=== PATIENT | female | born 1970 | race Caucasian/White ===

== ENCOUNTER 2020-04-06 13:09 | Outpatient (CLI) | payer OTHER, SELFPAY ==
[2020-04-10 11:52] LABS: Reference Lab Test Result Negative
== END 2020-04-06 13:10 | disposition home or self-care (01) ==
LOC: ANHLAB 13:16
PROVIDERS: PCP Family Medicine; Visit Provider Family Medicine
DX: R06.02 Shortness of breath (principal); R43.0 Anosmia; J06.9 Acute upper respiratory infection, unspecified
CPT/HCPCS: 36415; 86769

== ENCOUNTER 2020-04-25 08:33 | Outpatient (CLI) | payer OTHER, SELFPAY ==
[2020-04-26 03:00] LABS: SARS-CoV-2 RNA PCR Positive
== END 2020-04-25 08:34 | disposition home or self-care (01) ==
LOC: CHSLAB 08:35
PROVIDERS: PCP Family Medicine; Visit Provider Family Medicine
DX: U07.1 COVID-19 (principal)
CPT/HCPCS: 87635; C9803; U0003

== ENCOUNTER 2020-04-28 16:30 | Emergency (ER) | payer OTHER, SELFPAY ==
[2020-04-28] VITALS (11 sets, daily range): BP systolic 135–177; BP diastolic 78–88; PULSE 51–61; RESP 7–23; TEMP 36.5–36.9; O2SAT 97–99
--- NOTE | ~2020-04-28 | XR_ITS ---
EXAMINATION: XR chest 1V portable DATE: 04/28/2020 18:22 INDICATION: Shortness of breath. TECHNIQUE: A single frontal view of the chest was obtained. COMPARISON: Chest 2 views 06/25/17 FINDINGS: A calcified left lung nodule is consistent with old granulomatous disease. No pleural effus ion or pneumothorax. The heart size is normal. IMPRESSION: 1. No acute cardiopulmonary disease. Reviewed, dictated and finalized at location A. CE CLERK ROUTINE
--- NOTE | 2020-04-28 17:40 | PC.NURSE ---
patient brought back to ED room 12 with c/o headache for the past several days. states she was tested for Covid recently and is (+). see triage notes. no change in condition. resting on stretcher. has mask over eyes due to photophobia. denies known fever. denies cough. denies N/V/D. alert. oriented. assessments documented. SL attempted x 2 without success. SL now in right arm. labs drawn. placed on product scientist.
--- NOTE | 2020-04-28 18:05 | ECG_ITS ---
Measurements Intervals [place] Rate: 53 P: 42 GA: 182 QRS: -2 QRSD: 101 T: 34 QT: 442 QTc: 417 Interpretive Statements SINUS BRADYCARDIA BASELINE WANDER- V3, V5 BORDERLINE ECG Electronically Signed On 04-29-2020 7:52:20 FACILITIES OPERATOR by Marek Camara D.O.
--- NOTE | 2020-04-28 18:07 | ED.SOB ---
HPI - SOB/Dyspnea General Chief Complaint: Shortness of Breath/Dyspnea Stated Complaint: COID +, high bp, SOB, Time Seen by Provider: 04/28/20 17:29 Source: patient Mode of arrival: ambulatory Limitations: no limitations History of Present Illness HPI Narrative: This is a 50 year old female that presents to the ER for cold symptoms x 1 week. Reports she tested positive for COVID 2 days ago. Reports headaches, congestion, cough, and shortness of breath with exertion. Reports she has been having trouble getting her blood pressure under control. Reports history of migraines and that she has been taking Excedrin with little relief. Denies fever or chest pain. Related Data Home Medications Medication Instructions Recorded Confirmed aspirin 81 mg tablet,delayed 81 mg PO DAILY 07/29/19 07/29/19 release calcium carbonate 600 mg (1,500 4 cap PO cap 07/29/19 07/29/19 mg)-vitamin D3 500 unit capsule fluticasone propionate 50 1 spray NASAL DAILY 07/29/19 07/29/19 mcg/actuation nasal spray,suspension montelukast 10 mg tablet 10 mg PO QPM tablet 07/29/19 07/29/19 multivitamin 1 cap PO DAILY 07/29/19 07/29/19 triamcinolone acetonide 55 mcg 2 spray NASAL DAILY 07/29/19 07/29/19 nasal spray aerosol Allergies Allergy/AdvReac Type Severity Reaction Status Date / Time moxifloxacin [Avelox] Allergy Intermediate anaphylaxis Verified 04/25/20 08:01 haloperidol [From Haldol] Allergy Hypertensio Verified 04/28/20 17:19 n MOXIFLOXACIN HCL Allergy Mild RASH Uncoded 04/28/20 17:19 Review of Systems Review of Systems: Narrative: CONSTITUTIONAL: Denies fever EYES: Reports blurry vision ENT: Reports rhinorrhea, congestion, sore throat CARDIOVASCULAR: Denies chest pain, or edema. RESPIRATORY: Reports cough and dyspnea. NEUROLOGIC: Reports headache. Denies numbness, or weakness. All systems reviewed & are unremarkable except as noted in HPI and below PMFSH Past Medical History Medical History (Updated 04/28/20 @ 20:06 by Isabel Warren PA-C) ADHD ADHD Anemia Anxiety Arthritis Chronic back pain HTN (hypertension) Hyperlipidemia Hypothyroid Migraine Mitral valve prolapse Seasonal allergies Shingles UTI (urinary tract infection) Surgical History Surgical History History of cholecystectomy History of tonsillectomy History of tubal ligation Family History Family History Mother Hypertension Family history of diabetes mellitus in first degree relative Family history of congestive heart failure Father Cerebrovascular accident Family history of congestive heart failure Other Asthma Depression Diabetes mellitus Family history of anemia Family history of arthritis Family history of atrial fibrillation Family history of blood dyscrasia Family history of cardiovascular disease Family history of coronary artery disease Family history of elevated blood lipids Family history of malignant neoplasm Family history of migraine headaches Family history of obesity Family history of thyroid disease Social History Social History Smoking status: Never smoker Alcohol intake: never Gender identity (if verbalized by the patient): Female Exam Narrative: Exam Narrative: GENERAL: Well-appearing, obese, and in no acute distress. HEAD: Normocephalic, atraumatic. EYES: PERRLA and EOMI. ENT: Nares clear, no rhinorrhea or epistaxis. Mucous membranes moist. Oropharynx without tonsillar hypertrophy exudate or other lesions. Bilateral TMs pearly lindsey non-bulging NECK: Supple. No adenopathy or masses. CHEST: Clear to auscultation. No respiratory distress. No wheezes rales or rhonchi HEART: Regular rate and rhythm. No murmur heard. Normal peripheral pulses. EXTREMITIES: Normal range of motion. No edema. SKIN: Warm, dry, no rash. NEURO: No fo
[2020-04-28] MEDS: SODIUM CHLORIDE 0.9% IV 1,000 ML 999 ML IV CONT (18:15)
[2020-04-28] MEDS: diphenhydrAMINE HCl INJ 50 MG/ML VIAL 25 MG IV PUSH (18:16)
[2020-04-28] MEDS: KETOROLAC 30 MG/ML VIAL (*BKC) IV PUSH (18:17)
[2020-04-28] MEDS: METOCLOPRAMIDE HCL INJ 10 MG/2 ML VIAL IV PUSH (18:17)
--- NOTE | 2020-04-28 18:20 | PC.NURSE ---
EKG done at bedside. patient medicated as ordered. on radiation monitor. alert. oriented. denies needs. lights turned off. has call light in reach.
[2020-04-28 18:30] LABS: Basophils Percent Auto 0.3 % (0.2-1.2); Eosinophils Percent Auto 0.5 % (0-4.4); Hematocrit 39.4 % (37.0-47.0); Hemoglobin 13.1 g/dL (12.0-15.0); Immature Granulocyte Absolute 0.06 K/mm3 (0.00-0.031); Lymphocytes Absolute Auto 1.86 K/mm3 (0.9-3.2); Lymphocytes Percent Auto 30.7 % (18.3-44.2); Mean Corpuscular HGB Conc 33.2 g/dl (32-36); Mean Corpuscular Hemoglobin 30.3 pg (26-34); Mean Platelet Volume 8.9 fl (7.4-10.4); Monocytes Absolute Auto 0.3 K/mm3 (0.1-0.6); Monocytes Percent Auto 4.8 % (2.6-8.5); Neutrophils Absolute Auto 3.8 K/mm3 (1.3-6.7); Neutrophils Percent Auto 62.7 % (45.5-73.1); Platelet Count Result 259 k/mm3 (150-375); Red Blood Count 4.33 M/mm3 (4.2-5.4); Red Cell Distribution Width 13.3 % (11.5-14.5); White Blood Count 6.1 K/mm3 (4.5-10.0)
[2020-04-28 18:41] LABS: Alanine Aminotransferase 20 U/L (4-35); Albumin Level 3.8 g/dL (3.5-5.1); Alkaline Phosphatase 79 U/L (38-126); Anion Gap 12 mmol/L (8-16); Aspartate Amino Transferase 20 U/L (14-36); Bilirubin,Total 0.2 mg/dL (0.2-1.3); Blood Urea Nitrogen 23 mg/dL (7-17); Calcium 8.5 mg/dL (8.4-10.2); Carbon Dioxide 25 mmol/L (22-30); Chloride 104 mmol/L (98-107); Estimated CRCL calculation 68 ml/min; Estimated Glomerular Filt Rate 52; Glucose 82 mg/dL (65-105); Lactate Dehydrogenase 346 U/L (313-618); Potassium 3.4 mmol/L (3.4-5.0); Sodium 141 mmol/L (137-145)
[2020-04-28 18:42] LABS: Lactic Acid Reflex 1.2 mmol/L (0.7-2.1)
[2020-04-28 18:50] LABS: NT Pro B Type Natriuretic Pept 80 PG/ML (5-100)
--- NOTE | 2020-04-28 19:03 | PC.NURSE ---
resting on stretcher. PURDY is better. does have mild bodyaches. waiting for all labs to be resulted. denies needs. has call light in reach. update given to patient's daughter.
[2020-04-28 19:26] LABS: Prothrombin Time 13.6 Seconds (11.1-14.7)
[2020-04-28 19:27] LABS: Partial Thromboplastin Time 25.5 SECONDS (22.3-36.8)
[2020-04-28 19:35] LABS: D Dimer 0.27 ug/mL (<0.48)
== END 2020-04-28 20:43 | disposition home or self-care (01) ==
PROVIDERS: Physician Assistant; Emergency Provider Emergency Medicine; PCP Family Medicine
DX: U07.1 COVID-19 (principal); G43.909 Migraine, unspecified, not intractable, without status migrainosus; M19.90 Unspecified osteoarthritis, unspecified site; I10 Essential (primary) hypertension; E78.5 Hyperlipidemia, unspecified; E03.9 Hypothyroidism, unspecified; I34.1 Nonrheumatic mitral (valve) prolapse; Z79.82 Long term (current) use of aspirin; Z86.2 Personal history of diseases of the blood and blood-forming organs and certain disorders involving the immune mechanism; Z87.440 Personal history of urinary (tract) infections; R00.1 Bradycardia, unspecified
CPT/HCPCS: 36415; 71045; 80053; 83605; 83615; 83880; 85025; 85380; 85610; 85730; 93005; 96365; 96375; 99284; J0131; J1200; J1885; J2765; J7030

== ENCOUNTER 2020-07-02 00:21 | Observation (INO) | payer OTHER, SELFPAY ==
[2020-07-02] VITALS (23 sets, daily range): BP systolic 121–177; BP diastolic 51–98; PULSE 56–82; RESP 11–24; TEMP 36.4–36.9; O2SAT 97–100; BMI 41.4
--- NOTE | ~2020-07-02 | CT_ITS ---
EXAMINATION: CT brain wo con INDICATION: Altered mental status COMPARISON: 06/23/2019 TECHNIQUE: Standard unenhanced head CT. The dose-length product (DLP) was 605.33 mGy-cm. The mA was a djusted according to patient size. Iterative reconstruction technique was employed. FINDINGS: There is no intracranial hemorrhage, acute infarction, or abnormal mass lesion. The ventric les are normal. There is no abnormal mass effect or midline shift. The lindsey-white matter differentiat ion is normal. The basal cisterns are patent. The orbits are normal. The paranasal sinuses, mastoids and calvarium are normal. IMPRESSION: 1. No acute intracranial abnormality. Reviewed, dictated and finalized at location A. ULATION SALES REPRESENTATIVE
--- NOTE | ~2020-07-02 | MR_ITS ---
EXAMINATION: MR brain/brain stem wo/w con EXAM DATE: 07/02/2020 14:23 INDICATION: Altered mental status. TECHNIQUE: Magnetic resonance imaging (MRI) of the brain/brain stem obtained without contrast. Sagit roselyn T1, axial diffusion, gradient echo (T2*), T1, T2, FLAIR sequences obtained. Patient was then inj ected with 20 cc intravenous Multihance contrast. Axial and coronal postcontrast T1 weighted sequence s obtained. Correlation is made to head CT earlier same date. FINDINGS: There are no areas of restricted diffusion to suggest acute infarction. There is no acute hemorrhage seen on the T2*, a hemosiderin sensitive sequence. No intraparenchymal brain mass. The ve ntricles are normal in size. There are no extra-axial collections. Flow voids are seen in the cereb ral arteries on the T2-weighted sequences consistent with their expected patency. The orbits are unr emarkable. Soft tissue is unremarkable. Bilateral mastoid effusions. IMPRESSION: 1. No acute intracranial findings. 2. Mastoid effusions. Reviewed, dictated and finalized at location B. CTOR COUNSELING BUREAU
--- NOTE | ~2020-07-02 | XR_ITS ---
EXAMINATION: XR chest 1V INDICATION: Altered mental status, shortness of breath TECHNIQUE: AP view of the chest is obtained. COMPARISON: 04/28/2020 FINDINGS: The lungs are free of acute opacities. There is no pleural effusion or pneumothorax. The ca rdiomediastinal silhouette is normal. The visualized bones and soft tissues are unremarkable. IMPRESSION: 1. No acute cardiopulmonary abnormality. Reviewed, dictated and finalized at location A. GED CARE PROVIDER
--- NOTE | 2020-07-02 00:37 | ED.GENADULT ---
HPI - General Adult General Chief complaint: Weakness Stated complaint: weak, confusion Time Seen by Provider: 07/02/20 00:23 Source: RN notes reviewed History of Present Illness HPI narrative: Patient presents to emergency department from work for confusion. Patient states that since awaking at 4:30 PM this afternoon she has had some progressive confusion that she explains as feeling like I am in a fog patient came for further eval emergency department states she does have some feelings of weakness with us that is general she denies any fevers or chills headache vision changes numbness or tingling in extremities unilateral weakness chest pain abdominal pain nausea vomiting or any other symptoms she does note some mild feeling of shortness of breath states she did drink 3 [employer] is this evening which is more than she normally drinks patient does report she had the second Covid vaccination yesterday. Patient states that she has severe reaction with the first Covid vaccine and had to miss several days of work with myalgias and headaches patient denies a current headache patient states she has had some myalgias throughout the day today Related Data Home Medications Medication Instructions Recorded Confirmed aspirin 81 mg tablet,delayed 81 mg PO DAILY 07/29/19 07/29/19 release calcium carbonate 600 mg (1,500 4 cap PO cap 07/29/19 07/29/19 mg)-vitamin D3 500 unit capsule fluticasone propionate 50 1 spray NASAL DAILY 07/29/19 07/29/19 mcg/actuation nasal spray,suspension montelukast 10 mg tablet 10 mg PO QPM tablet 07/29/19 07/29/19 multivitamin 1 cap PO DAILY 07/29/19 07/29/19 triamcinolone acetonide 55 mcg 2 spray NASAL DAILY 07/29/19 07/29/19 nasal spray aerosol Allergies Allergy/AdvReac Type Severity Reaction Status Date / Time moxifloxacin [Avelox] Allergy Intermediate anaphylaxis Verified 07/02/20 00:28 haloperidol [From Haldol] Allergy Hypertensio Verified 07/02/20 00:28 n MOXIFLOXACIN HCL Allergy Mild RASH Uncoded 04/28/20 17:19 Review of Systems Review of Systems: Narrative: Gen.: Denies fevers or chills reports myalgias Eyes: Denies eye pain or visual change ENT: Denies congestion Respiratory: Denies shortness of breath or cough CV: Denies chest pain or palpitations GI: Denies abdominal pain nausea, emesis or diarrhea denies burning, urgency, frequency or hematuria Musculoskeletal: Denies back pain or muscle pain Neuro: See HPI Skin: Denies rash Except as documented, all other systems reviewed and negative [facility] Past Medical History Medical History (Updated 07/02/20 @ 03:48 by Zen Johnson DO) ADHD ADHD Anemia Anxiety Arthritis Chronic back pain HTN (hypertension) Hyperlipidemia Hypothyroid Migraine Mitral valve prolapse Seasonal allergies Shingles UTI (urinary tract infection) Surgical History Surgical History History of cholecystectomy History of tonsillectomy History of tubal ligation Family History Family History Mother Hypertension Family history of diabetes mellitus in first degree relative Family history of congestive heart failure Father Cerebrovascular accident Family history of congestive heart failure Other Asthma Depression Diabetes mellitus Family history of anemia Family history of arthritis Family history of atrial fibrillation Family history of blood dyscrasia Family history of cardiovascular disease Family history of coronary artery disease Family history of elevated blood lipids Family history of malignant neoplasm Family history of migraine headaches Family history of obesity Family history of thyroid disease Social History Social History Smoking status: Never smoker Alcohol intake: never Gender identity (if verbalized by the patient): Female
[2020-07-02] MEDS: SODIUM CHLORIDE 0.9% IV 1,000 ML 999 ML IV CONT (01:02)
--- NOTE | 2020-07-02 01:12 | ECG_ITS ---
Measurements Intervals [place] Rate: 72 P: 44 MI: 180 QRS: 8 QRSD: 98 T: 30 QT: 390 QTc: 429 Interpretive Statements SINUS RHYTHM DELAYED PRECORDIAL R/S TRANSITION LOW QRS VOLTAGE IN PRECORDIAL LEADS BORDERLINE ST-T WAVE ABNORMALITY- ANT/HIGH LAT LEADS BORDERLINE ECG Electronically Signed On 07-02-2020 9:04:51 RESEARCH LABORATORY SPECIALIST by Marek Camara D.O.
[2020-07-02 01:34] LABS: Basophils Percent Auto 0.8 % (0.2-1.2); Eosinophils Absolute Auto 0.3 K/mm3 (0-0.3); Eosinophils Percent Auto 4.9 % (0-4.4); Hematocrit 38.1 % (37.0-47.0); Hemoglobin 12.5 g/dL (12.0-15.0); Immature Granulocyte Absolute 0.02 K/mm3 (0.00-0.031); Immature Granulocyte Percent A 0.4 % (0-0.5); Lymphocytes Absolute Auto 1.04 K/mm3 (0.9-3.2); Lymphocytes Percent Auto 20.2 % (18.3-44.2); Mean Corpuscular HGB Conc 32.8 g/dl (32-36); Mean Corpuscular Hemoglobin 30.2 pg (26-34); Mean Platelet Volume 9.6 fl (7.4-10.4); Monocytes Absolute Auto 0.2 K/mm3 (0.1-0.6); Monocytes Percent Auto 4.3 % (2.6-8.5); Neutrophils Absolute Auto 3.6 K/mm3 (1.3-6.7); Neutrophils Percent Auto 69.4 % (45.5-73.1); Platelet Count Result 222 k/mm3 (150-375); Red Blood Count 4.14 M/mm3 (4.2-5.4); Red Cell Distribution Width 13.3 % (11.5-14.5); White Blood Count 5.1 K/mm3 (4.5-10.0)
[2020-07-02 01:43] LABS: Amphetamine Screen Urine Negative (Negative); Barbiturate Screen Urine Negative (Negative); Benzodiazepines Screen Urine Negative (Negative); Cannabinoid Screen Urine Negative (Negative); Cocaine Screen Urine Negative (Negative); Methadone Screen Urine Negative (Negative); Opiate Screen Urine Negative (Negative); Phencyclidine Screen Urine Negative (Negative)
[2020-07-02 01:52] LABS: Add Urine Microscopic? NO; Appearance Urine Clear (Clear); Bacteria Urine Trace /hpf; Bilirubin Urine Negative (Negative); Blood Urine Negative (Negative); Color Urine Colorless (Yellow); Glucose Urine UA Negative (Negative); Ketones Urine Negative (Negative); Leukocyte Esterase Ur Negative LEU/UL (Negative); Nitrate Urine Negative (Negative); Protein Urine Negative (Negative); RBC Urine 0-2 /hpf (0-2); Specific Grav Ur 1.005 (1.001-1.035); Squamous Epithelial Cell Urine Rare /hpf (Few); Urobilinogen Urine Negative mg/dL (<2.0); WBC Urine 0-3 /hpf
[2020-07-02 01:59] LABS: Alanine Aminotransferase 15 U/L (4-35); Albumin Level 3.5 g/dL (3.5-5.1); Alkaline Phosphatase 66 U/L (38-126); Anion Gap 5 mmol/L (8-16); Aspartate Amino Transferase 22 U/L (14-36); Bilirubin,Total 0.3 mg/dL (0.2-1.3); Blood Urea Nitrogen 12 mg/dL (7-17); Calcium 8.3 mg/dL (8.4-10.2); Carbon Dioxide 24 mmol/L (22-30); Chloride 108 mmol/L (98-107); Estimated CRCL calculation 81 ml/min; Estimated Glomerular Filt Rate > 60; Ethanol < 10 mg/dL (<10); Glucose 110 mg/dL (65-105); Potassium 3.6 mmol/L (3.4-5.0); Sodium 137 mmol/L (137-145)
[2020-07-02 02:03] LABS: Prothrombin Time 13.9 Seconds (11.1-14.7)
[2020-07-02 02:04] LABS: Partial Thromboplastin Time 31.5 SECONDS (22.3-36.8)
[2020-07-02 02:10] LABS: Troponin I < 0.012 ng/mL (0.000-0.034)
[2020-07-02] MEDS: ASPIRIN 81 MG CHEWABLE TABLET PO (03:44)
[2020-07-02] MEDS: LEVOTHYROXINE SODIUM INJ 100 MCG/5 ML VIAL IV PUSH (03:47)
--- NOTE | 2020-07-02 08:28 | PC.NURSE ---
Patient transferred from room 300 to 221-1. report received, patient alert and oriented x3 without complaints. oriented to room, call segovia within reach.
--- NOTE | 2020-07-02 11:22 | PM.IMHP ---
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 Also had some headaches and body aches and fatigue at the time. Pt had been well recently had the second covid shot on Thursday. Pt is usually in good health. Pt has recovered from the covid infection in april. Today pt denies any weakness or numbess in her arms or legs no speech, swallow problems no vision or facial numbness or weakness, but pt appears tired, having some body aches and fatigue. She does not appear confused. She is orientedx3. Her vitals are stable, no fever, cough or sob. CT head is NL, Cxr is NL. Review of Systems Review of Systems: All systems reviewed & are unremarkable except as noted in HPI and below PMFSH Past Medical History Medical History (Updated 07/02/20 @ 11:35 by Maite Kwok MD) ADHD ADHD Anemia Anxiety Arthritis Chronic back pain HTN (hypertension) Hyperlipidemia Hypothyroid Migraine Mitral valve prolapse Seasonal allergies Shingles UTI (urinary tract infection) Surgical History Surgical History History of cholecystectomy History of tonsillectomy History of tubal ligation Family History Family History Mother Hypertension Family history of diabetes mellitus in first degree relative Family history of congestive heart failure Father Cerebrovascular accident Family history of congestive heart failure Other Asthma Depression Diabetes mellitus Family history of anemia Family history of arthritis Family history of atrial fibrillation Family history of blood dyscrasia Family history of cardiovascular disease Family history of coronary artery disease Family history of elevated blood lipids Family history of malignant neoplasm Family history of migraine headaches Family history of obesity Family history of thyroid disease Social History Social History Smoking status: Never smoker Alcohol intake: never Substance use: never Gender identity (if verbalized by the patient): Female Spiritual care concerns: No Meds Home Medications and Allergies Home Medications Medication Instructions Recorded Confirmed Type albuterol sulfate 90 mcg/actuation 1 inhalation INHALATION Q4H PRN 07/29/19 07/02/20 Rx aerosol inhaler #8.5 gm aspirin 81 mg tablet,delayed 81 mg PO DAILY 07/29/19 07/02/20 History release calcium carbonate 600 mg (1,500 4 cap PO DAILY cap 07/29/19 07/02/20 History mg)-vitamin D3 500 unit capsule fluticasone propionate 50 1 spray NASAL DAILY 07/29/19 07/02/20 History mcg/actuation nasal spray,suspension multivitamin 1 cap PO DAILY 07/29/19 07/02/20 History bupropion HCl 150 mg tablet,12 hr 150 mg PO DAILY #30 tablet 11/08/19 07/02/20 Rx sustained-release fexofenadine 180 mg tablet 180 mg PO DAILY #30 tablet 11/08/19 07/02/20 Rx topiramate 200 mg tablet 200 mg PO BID #30 tablet 11/08/19 07/02/20 Rx fluoxetine 20 mg capsule 20 mg PO DAILY #30 cap 02/14/20 07/02/20 Rx fluoxetine 40 mg capsule 40 mg PO DAILY #30 cap 02/14/20 07/02/20 Rx levothyroxine 200 mcg capsule 200 mcg PO DAILY #30 cap 02/14/20 07/02/20 Rx meclizine 25 mg tablet 25 mg PO TID PRN #90 tablet 05/03/20 07/02/20 Rx atorvastatin 40 mg tablet 40 mg PO DAILY #90 tablet 05/07/20 07/02/20 Rx losartan 25 mg tablet 25 mg PO DAILY #90 tablet 05/07/20 07/02/20 Rx triamterene 37.5 1 tablet PO DAILY #90 tablet 05/07/20 07/02/20 Rx mg-hydrochlorothiazide 25 mg tablet metoprolol tartrate 12.5 mg PO BID PRN 07/02/20 07/02/20 History Allergies Allergy/AdvReac Type Severity Reaction Status Date / Time moxifloxacin [Avelox] Allergy Severe anaphylaxis Verified
[2020-07-02] MEDS: TRIAMTERENE 37.5 MG/HCTZ 25 MG (MAXZIDE) TABLET 1 TAB PO (14:27)
[2020-07-02] MEDS: LOSARTAN POTASSIUM 25 MG TABLET PO (14:28)
[2020-07-02] MEDS: FLUoxetine HCL 20 MG CAPSULE 40 MG PO (14:28)
[2020-07-02] MEDS: FLUoxetine HCL 20 MG CAPSULE PO (14:28)
[2020-07-02] MEDS: ATORVASTATIN 40 MG TABLET PO (14:29)
[2020-07-02] MEDS: MULTIVITAMINS THERAPEUTIC TAB (*BKC) 1 TABLET PO (14:32)
[2020-07-02] MEDS: ACETAMINOPHEN 325 MG TABLET 650 MG PO ×2 (15:01→22:26)
[2020-07-02] MEDS: TOPIRAMATE 100 MG TABLET 200 MG PO (17:11)
[2020-07-03 05:07] VITALS: BP 130/74; PULSE 53; RESP 14; TEMP 36.8; O2SAT 97
[2020-07-03 05:23] LABS: Basophils Absolute Auto 0.1 K/mm3 (0.0-0.1); Basophils Percent Auto 0.9 % (0.2-1.2); Eosinophils Absolute Auto 0.7 K/mm3 (0-0.3); Eosinophils Percent Auto 13.3 % (0-4.4); Hematocrit 38.8 % (37.0-47.0); Hemoglobin 12.7 g/dL (12.0-15.0); Immature Granulocyte Absolute 0.02 K/mm3 (0.00-0.031); Immature Granulocyte Percent A 0.4 % (0-0.5); Lymphocytes Percent Auto 28.1 % (18.3-44.2); Mean Corpuscular HGB Conc 32.7 g/dl (32-36); Mean Corpuscular Hemoglobin 30.5 pg (26-34); Mean Platelet Volume 9.2 fl (7.4-10.4); Monocytes Absolute Auto 0.4 K/mm3 (0.1-0.6); Monocytes Percent Auto 7.1 % (2.6-8.5); Neutrophils Absolute Auto 2.7 K/mm3 (1.3-6.7); Neutrophils Percent Auto 50.2 % (45.5-73.1); Platelet Count Result 227 k/mm3 (150-375); Red Blood Count 4.17 M/mm3 (4.2-5.4); Red Cell Distribution Width 13.2 % (11.5-14.5); White Blood Count 5.3 K/mm3 (4.5-10.0)
[2020-07-03 05:27] LABS: Anion Gap 6 mmol/L (8-16); Blood Urea Nitrogen 15 mg/dL (7-17); Calcium 9.2 mg/dL (8.4-10.2); Carbon Dioxide 24 mmol/L (22-30); Chloride 105 mmol/L (98-107); Estimated CRCL calculation 73 ml/min; Estimated Glomerular Filt Rate 58; Glucose 135 mg/dL (65-105); Potassium 3.8 mmol/L (3.4-5.0); Sodium 135 mmol/L (137-145)
[2020-07-03] MEDS: LEVOTHYROXINE SODIUM 100 MCG TABLET 200 MCG PO (06:44)
[2020-07-03] MEDS: ATORVASTATIN 40 MG TABLET PO (08:29)
[2020-07-03] MEDS: buPROPion HCL XL (24 HR) 150 MG TABCR PO (08:30)
[2020-07-03] MEDS: FLUoxetine HCL 20 MG CAPSULE PO (08:31)
[2020-07-03] MEDS: FLUoxetine HCL 20 MG CAPSULE 40 MG PO (08:32)
[2020-07-03] MEDS: MULTIVITAMINS THERAPEUTIC TAB (*BKC) 1 TABLET PO (08:33)
[2020-07-03] MEDS: LOSARTAN POTASSIUM 25 MG TABLET PO (08:33)
[2020-07-03] MEDS: TRIAMTERENE 37.5 MG/HCTZ 25 MG (MAXZIDE) TABLET 1 TAB PO (08:34)
[2020-07-03] MEDS: TOPIRAMATE 100 MG TABLET 200 MG PO (08:34)
[2020-07-03] MEDS: FLUTICASONE PROPIONATE 0.05% NA SPR 16 GM BTL (*BKC) 1 SPRAY NASAL (08:35)
[2020-07-03] MEDS: ACETAMINOPHEN 325 MG TABLET 650 MG PO (08:45)
[2020-07-03] MEDS: ASPIRIN 81 MG ENTERIC TABLET PO (10:31)
[2020-07-03] MEDS: LORATADINE 10 MG TABLET PO (10:31)
--- NOTE | 2020-07-03 11:27 | WPDNEURCNPN ---
Assessment and Plan Assessment and plan (1) Acute alteration in mental status: Code(s): R41.82 - Altered mental status, unspecified Status: Resolved (2) COVID-19: Code(s): U07.1 - COVID-19 Status: Chronic Additional Plan fairly nonfocal and stable neurological examination with obvious history of 2nd does in addition to the history of the previously COVID infection as well is stable MRI has documented no space-occupying lesion and chest x-ray is negative as well, I have reviewed all the medication she been continued on those medication as such Consult date: 07/03/20 Time Seen: 11:00 HPI: Jennyfer Lozano is a 50 year old female admitted to the hospital with the complaints of headaches, body aches and fatigue she received the 2nd COVID shot on Thursday up until then she has been in good health though she recently had the COVID infection in April and recover from that very well to prior to his 2nd dose of the COVID Scharff she is had taken the Benadryl 50 mg along with the Tylenol neuro consultation was obtained because patient was reportedly confused raising the possibility of the encephalopathy the CT scan of the head was normal and so as the chest x-ray, lab has revealed normal CBC normal BMP normal drug screen and positive SARS-CoV-2 COVID Review of Systems Review of Systems: All systems reviewed & are unremarkable except as noted in HPI and below PMFSH Past Medical History Medical History ADHD ADHD Anemia Anxiety Arthritis Chronic back pain HTN (hypertension) Hyperlipidemia Hypothyroid Migraine Mitral valve prolapse Seasonal allergies Shingles UTI (urinary tract infection) Surgical History Surgical History History of cholecystectomy History of tonsillectomy History of tubal ligation Family History Family History Mother Hypertension Family history of diabetes mellitus in first degree relative Family history of congestive heart failure Father Cerebrovascular accident Family history of congestive heart failure Other Asthma Depression Diabetes mellitus Family history of anemia Family history of arthritis Family history of atrial fibrillation Family history of blood dyscrasia Family history of cardiovascular disease Family history of coronary artery disease Family history of elevated blood lipids Family history of malignant neoplasm Family history of migraine headaches Family history of obesity Family history of thyroid disease Social History Social History Smoking status: Never smoker Alcohol intake: never Substance use: never Gender identity (if verbalized by the patient): Female Spiritual care concerns: No Meds Home Medications and Allergies Home Medications Medication Instructions Recorded Confirmed Type albuterol sulfate 90 mcg/actuation 1 inhalation INHALATION Q4H PRN 07/29/19 07/02/20 Rx aerosol inhaler #8.5 gm aspirin 81 mg tablet,delayed 81 mg PO DAILY 07/29/19 07/02/20 History release calcium carbonate 600 mg (1,500 4 cap PO DAILY cap 07/29/19 07/02/20 History mg)-vitamin D3 500 unit capsule fluticasone propionate 50 1 spray NASAL DAILY 07/29/19 07/02/20 History mcg/actuation nasal spray,suspension multivitamin 1 cap PO DAILY 07/29/19 07/02/20 History bupropion HCl 150 mg tablet,12 hr 150 mg PO DAILY #30 tablet 11/08/19 07/02/20 Rx sustained-release fexofenadine 180 mg tablet 180 mg PO DAILY #30 tablet 11/08/19 07/02/20 Rx topiramate 200 mg tablet 200 mg PO BID #30 tablet 11/08/19 07/02/20 Rx fluoxetine 20 mg capsule 20 mg PO DAILY #30 cap 02/14/20 07/02/20 Rx fluoxetine 40 mg capsule 40 mg PO DAILY #30 cap 02/14/20 07/02/20 Rx levothyroxine 200 mcg capsule 200 mcg PO DAILY #30 cap 02/14/20 07/02/20 Rx meclizine 25
--- NOTE | 2020-07-03 13:31 | PM.DS ---
DS: Admitting Diagnosis Admitting Diagnosis Admitting Diagnosis: AMS DS: Discharge Diagnosis Discharge Diagnosis (1) Acute alteration in mental status: Code(s): R41.82 - Altered mental status, unspecified Status: Resolved Assessment and Plan: Likely secondary to second covid shot and some side effect. Thinking process transitionally effected. Pt advised to drink plenty of water and rest. Pt seen by neurologist. CT head is negative. Neurochecks completed in the hospital. Pt looks well ready for discharge. Denies any confusion numbness or weakness today. (2) COVID-19: Code(s): U07.1 - COVID-19 Status: Chronic Assessment and Plan: In the past (3) Anxiety: Code(s): F41.9 - Anxiety disorder, unspecified Status: Chronic Assessment and Plan: Continue home medications (4) Essential (primary) hypertension: Code(s): I10 - Essential (primary) hypertension Status: Chronic Assessment and Plan: Continue home medications (5) Hypothyroid: Code(s): E03.9 - Hypothyroidism, unspecified Status: Chronic Assessment and Plan: Continue home medications (6) Hyperlipidemia: Code(s): E78.5 - Hyperlipidemia, unspecified Status: Chronic Assessment and Plan: Continue home medications (7) ADHD: Code(s): F90.9 - Attention-deficit hyperactivity disorder, unspecified type Status: Chronic Assessment and Plan: Contuinue home medications (8) Arthritis: Code(s): M19.90 - Unspecified osteoarthritis, unspecified site Status: Chronic Assessment and Plan: Continue home medications DS: Summary Hospital Course Hospital Course: 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 Also had some headaches and body aches and fatigue at the time. Pt had been well recently had the second covid shot on Thursday. Pt is usually in good health. Pt has recovered from the covid infection in april. Pt feels much better today stable for discharge. CT head is NL, Cxr is NL. No confusion no numbness or weakness. Time Spent with Patient Time attestation: Total time spent providing and/or coordinating discharge services:32 minutes on day of discharge Exam Const: General: tired appearing and other (overweight ) HENMT: Head: normocephalic Eyes: General: appearance normal, both eyes and all related structures Pupils: Equal, round and reactive pupils present Neck: Neck: supple Chest: Chest palpation & inspection: normal inspection of the chest Resp: Effort & Inspection: normal respiratory effort Auscultation: clear to auscultation bilaterally Cardio: Jugular venous distension: no JVD Rhythm: regular rhythm Heart sounds: S1 normal heart sound present and S2 normal heart sound present GI: Inspection: normal to inspection Auscultation: normal bowel sounds : General: Yes no CVA tenderness Back/Spine/Pelvis: Back: no CVA tenderness Skin: General skin exam: normal color and dry skin Neuro: Cranial nerves: Yes CN's II-XII intact bilaterally and Yes Equal, round and reactive pupils present Cognition (Neuro): normal cognition Speech: normal speech Motor exam (neuro): 5/5 motor strength present throughout Extrem: General: normal to inspection Psych: Appearance: grossly normal Mental Status: mental status grossly normal DS: Data Data Completed and Pending Labs on day of discharge: Labs from last 24 hours 07/03/20 07/03/20 04:55 04:55 WBC 5.3 RBC 4.17 L Hgb 12.7 Hct 38.8 MCV 93.0 MCH 30.5 MCHC 32.7 RDW 13.2 Plt Count 227 MPV 9.2 Immature Gran % (Auto) 0.4 Neut % (Auto) 50.2 Lymph % (Auto) 28.1 [place] % (Auto) 7.1 Eos % (Auto) 13.3 H Baso % (Auto) 0.9 Lymph # (Auto) 1.50 [place] # (Auto) 0.4 Eos # (Auto) 0.7 H Baso # (Auto) 0.1 Abs Immat Gran (auto) 0
== END 2020-07-03 14:02 | disposition home or self-care (01) ==
LOC: ANHED 03:48 → ANHTRC 07-03 03:48 → ANH3MEDSUR 07-04 15:04 → ANHTRC 07-04 15:04
PROVIDERS: Admitting Provider Internal Medicine; Emergency Provider Emergency Medicine; PCP Family Medicine; Visit Provider Family Medicine
DX: R41.82 Altered mental status, unspecified (principal); U07.1 COVID-19; R53.1 Weakness; I10 Essential (primary) hypertension; E78.5 Hyperlipidemia, unspecified; E03.9 Hypothyroidism, unspecified; I34.1 Nonrheumatic mitral (valve) prolapse; F90.9 Attention-deficit hyperactivity disorder, unspecified type; D64.9 Anemia, unspecified; F41.9 Anxiety disorder, unspecified; M19.90 Unspecified osteoarthritis, unspecified site; Z79.82 Long term (current) use of aspirin; Z79.899 Other long term (current) drug therapy
CPT/HCPCS: 36415; 70450; 70553; 71045; 80048; 80053; 80307; 81003; 82607; 84443; 84484; 85025; 85610; 85730; 93005; 96361; 96365; 99285; A9270; A9577; G0378; J7030

== ENCOUNTER 2021-01-18 07:44 | Outpatient (CLI) | payer OTHER, SELFPAY ==
[2021-01-18 08:28] LABS: Basophils Absolute Auto 0.1 K/mm3 (0.0-0.1); Basophils Percent Auto 0.6 % (0.2-1.2); Eosinophils Absolute Auto 0.2 K/mm3 (0-0.3); Eosinophils Percent Auto 2.4 % (0-4.4); Hematocrit 39.4 % (37.0-47.0); Hemoglobin 12.6 g/dL (12.0-15.0); Immature Granulocyte Absolute 0.04 K/mm3 (0.00-0.031); Immature Granulocyte Percent A 0.4 % (0-0.5); Lymphocytes Absolute Auto 4.01 K/mm3 (0.9-3.2); Lymphocytes Percent Auto 40.7 % (18.3-44.2); Mean Corpuscular Hemoglobin 29.8 pg (26-34); Mean Corpuscular Volume 93.1 fl (80-100); Mean Platelet Volume 9.3 fl (7.4-10.4); Monocytes Absolute Auto 0.4 K/mm3 (0.1-0.6); Monocytes Percent Auto 4.3 % (2.6-8.5); Neutrophils Absolute Auto 5.1 K/mm3 (1.3-6.7); Neutrophils Percent Auto 51.6 % (45.5-73.1); Platelet Count Result 360 k/mm3 (150-375); Red Blood Count 4.23 M/mm3 (4.2-5.4); Red Cell Distribution Width 13.7 % (11.5-14.5); White Blood Count 9.9 K/mm3 (4.5-10.0)
[2021-01-18 08:46] LABS: Alanine Aminotransferase 19 U/L (4-35); Albumin Level 4.7 g/dL (3.5-5.1); Alkaline Phosphatase 93 U/L (38-126); Anion Gap 15 mmol/L (8-16); Aspartate Amino Transferase 23 U/L (14-36); Bilirubin,Total 0.4 mg/dL (0.2-1.3); Blood Urea Nitrogen 16 mg/dL (7-17); Calcium 10.1 mg/dL (8.4-10.2); Carbon Dioxide 20 mmol/L (22-30); Chloride 102 mmol/L (98-107); Cholesterol 241 mg/dL (0-200); Estimated Glomerular Filt Rate 47; Glucose 97 mg/dL (65-110); HDL Direct 59 mg/dL; Potassium 3.9 mmol/L (3.4-5.0); Sodium 137 mmol/L (137-145); Triglycerides 416 mg/dL (<150)
[2021-01-18 08:57] LABS: LDL Cholesterol Direct 113 mg/dL
[2021-01-18 11:02] LABS: Free T4 Free Thyroxine Reflex 0.84 ng/dL (0.78-2.19)
[2021-01-18 11:41] LABS: Total Triiodothyronine (T3) 1.29 NG/ML (0.97-1.69)
[2021-01-18 16:50] LABS: T4 Thyroxine 7.79 ug/dL (5.53-11.0)
[2021-01-22 12:00] LABS: T3 Reverse 11 ng/dL (8-25)
== END 2021-01-18 07:45 | disposition home or self-care (01) ==
PROVIDERS: PCP Family Medicine; Visit Provider Family Medicine
DX: E03.9 Hypothyroidism, unspecified (principal); E78.5 Hyperlipidemia, unspecified
CPT/HCPCS: 36415; 80053; 80061; 84436; 84439; 84443; 84480; 84482; 85025

== ENCOUNTER 2021-01-24 07:35 | Outpatient (CLI) | payer OTHER, SELFPAY ==
[2021-01-24 08:49] LABS: Free T4 Free Thyroxine 1.11 ng/mL (0.78-2.19)
[2021-01-24 10:52] LABS: Free T4 Free Thyroxine Reflex 0.99 ng/dL (0.78-2.19)
[2021-01-24 11:48] LABS: Total Triiodothyronine (T3) 1.29 NG/ML (0.97-1.69)
== END 2021-01-24 07:36 | disposition home or self-care (01) ==
LOC: ANHLAB 07:37
PROVIDERS: PCP Family Medicine; Visit Provider Family Medicine
DX: E03.9 Hypothyroidism, unspecified (principal)
CPT/HCPCS: 36415; 84439; 84443; 84480

== ENCOUNTER 2021-07-22 07:58 | Outpatient (CLI) | payer OTHER, SELFPAY ==
[2021-07-22 08:17] LABS: Hemoglobin 12.5 g/dL (12.0-15.0)
[2021-07-22 08:23] LABS: Anion Gap 7 mmol/L (8-16); Blood Urea Nitrogen 20 mg/dL (7-17); Calcium 9.2 mg/dL (8.4-10.2); Carbon Dioxide 25 mmol/L (22-30); Chloride 101 mmol/L (98-107); Estimated Glomerular Filt Rate > 60; Glucose 96 mg/dL (65-110); Potassium 4.3 mmol/L (3.4-5.0); Sodium 133 mmol/L (137-145)
== END 2021-07-22 07:59 | disposition home or self-care (01) ==
LOC: ANHSURGERY 08:01
PROVIDERS: Anesthesiology; PCP Family Medicine; Visit Provider Student in an Organized Health Care Education/Training Program
DX: Z79.899 Other long term (current) drug therapy (principal); Z01.818 Encounter for other preprocedural examination
CPT/HCPCS: 36415; 80048; 85014; 85018

== ENCOUNTER 2021-07-25 01:01 | Day surgery (SDC) | payer OTHER, SELFPAY ==
[2021-07-18 10:36] VITALS: BMI 49.9
--- NOTE | 2021-07-18 10:49 | PC.NURSE ---
Report to the Outpatient Waiting Room, entrance under the green pavilion located off [facility], at time 1230 on date 07/25/21. OR Time: 1430. - You will be asked a series of questions to screen for COVID 19 for your protection. - A mask is required within the hospital. - No visitors are allowed at this time. Preoperative COVID Testing Requirements: No COVID Test needed if: (proof is required; if not received patient will have Rapid Test prior to entry) - Patient has received COVID Vaccine at least 14 days prior to procedure date or - Patient has positive COVID test result within last 90 days of surgery date. COVID Test needed if above criteria is not met Patients may have clear liquids (water, carbonated beverages, clear teas, apple juice) until 3 hours prior to surgery (1130) with a maximum of 20 ounces. - No food from midnight until time of surgery Take the following medications with a SIP of water the morning of surgery: BUPROPION, DULOXETINE, LEVOTHYROXINE Medications to discontinue per physician: VITAMINS/SUPPLEMENTS Date to take last dose: 07/21/[address] MCCALLUM'S INSTRUCTIONS REGARDING ASPIRIN Please no make-up, nail nepalese, hairspray, perfume, deodorant, or body powder the day of surgery. No jewelry (including any body piercings) or valuables the day of surgery, leave them at home. Please take a shower or bath the night before, or the morning of, surgery with an antibacterial soap. Wear comfortable, loose fitting clothing. - Jewelry must be removed prior to entering the operating room. Rings and piercings that are not removed may be cut off. - The hospital will not accept responsibility for valuables. - Please leave all valuables, including medications, at home the day of surgery. If you are going home after surgery, a licensed ups driver must drive you home. - NO public transportation without another adult. - We recommend that an adult stay with you for 24 hours following discharge. - We also recommend that you do not drive, make important decision, drink alcoholic beverages, or take any drugs that were not prescribed by your health care provider for at least 24 hours after your discharge time. Follow any additional instructions given to you from your surgeon. Telephone instructions given to ANGELA ARZOLA and asked if any additional questions and then verbalized understanding. Patient advised to call surgeon office or pre surgery nurse liaison [phone] if any additional questions.
--- NOTE | 2021-07-25 10:56 | PM.IMHP ---
H&P: HPI History of Present Illness Date/Time: 07/25/21 10:56 Chief Complaint: abnormal uterine bleeding Narrative: 51 yo female who presents for hysteroscopy D&C for abnormal uterine bleeding. Pt has tried medical management in the past without improvement. Pt was noted to have some small fibroids on pelvic US. Pt elected for surgical management. Review of Systems Cardiovascular: Cardiovascular: Denies chest pain, Denies leg edema, Denies palpitations, Denies dyspnea and Denies dyspnea on exertion Respiratory: Respiratory: Denies cough, Denies dyspnea and Denies dyspnea on exertion Gastrointestinal: Gastrointestinal: Denies abdominal pain, Denies constipation, Denies diarrhea, Denies nausea and Denies vomiting Genitourinary: Genitourinary: Denies hematuria, Denies urinary frequency, Denies dysuria, Denies pelvic pain, Denies urinary incontinence and Denies vaginal discharge Neurologic: Reports system reviewed and no additional complaints, except as documented Psychiatric: Psychiatric: Reports no additional psychiatric complaints Endocrine: Endocrine: Denies palpitations PMFSH Past Medical History Medical History (Updated 07/25/21 @ 11:00 by Everton Carl MD) ADHD ADHD Anemia Anxiety Arthritis Candidal intertrigo Chronic back pain Eczema HTN (hypertension) Hyperlipidemia Hypothyroid Migraine Migraine Mitral valve prolapse Onychomycosis Seasonal allergies Shingles UTI (urinary tract infection) Surgical History Surgical History History of cholecystectomy History of tonsillectomy History of tubal ligation Family History Family History Mother Hypertension Family history of diabetes mellitus in first degree relative Family history of congestive heart failure Father Cerebrovascular accident Family history of congestive heart failure Other Asthma Depression Diabetes mellitus Family history of anemia Family history of arthritis Family history of atrial fibrillation Family history of blood dyscrasia Family history of cardiovascular disease Family history of coronary artery disease Family history of elevated blood lipids Family history of malignant neoplasm Family history of migraine headaches Family history of obesity Family history of thyroid disease Social History Social History Smoking status: Never smoker Alcohol intake: current Alcohol use details: VERY RARE Substance use: never Substance use type: does not use Living arrangements: with family Additional living arrangements comments: DAUGHTER Gender identity (if verbalized by the patient): Female Spiritual care concerns: No Meds Home Medications and Allergies Home Medications Medication Instructions Recorded Confirmed Type aspirin 81 mg tablet,delayed 81 mg PO DAILY 07/29/19 07/18/21 History release fluticasone propionate 50 1 spray NASAL DAILY PRN 07/29/19 07/18/21 History mcg/actuation nasal spray,suspension multivitamin 1 cap PO DAILY 07/29/19 07/18/21 History bupropion HCl 150 mg tablet,12 hr 150 mg PO DAILY #30 tablet 11/08/19 07/18/21 Rx sustained-release albuterol sulfate 90 mcg/actuation 1 inh INHALATION Q4H PRN #8.5 gm 07/06/20 07/18/21 Rx aerosol inhaler fluoxetine 40 mg capsule 40 mg PO DAILY #90 cap 09/17/20 07/18/21 Rx meclizine 25 mg tablet 25 mg PO TID PRN #90 tablet 02/22/21 07/18/21 Rx sumatriptan succinate 50 mg tablet 50 mg PO ONCE #14 tablet 03/15/21 07/18/21 Rx fexofenadine 180 mg tablet 180 mg PO DAILY #90 tablet 05/07/21 07/18/21 Rx triamterene 37.5 1 tablet PO DAILY #90 tablet 06/10/21 07/18/21 Rx mg-hydrochlorothiazide 25 mg tablet losartan 25 mg tablet 25 mg PO DAILY #90 tablet 06/12/21 07/18/21 Rx atorvastatin 40 mg tablet 40 mg PO DAILY #90 tablet 07/08/21 07/18/[address]
[2021-07-25 10:58] VITALS: BP 184/95; PULSE 89; RESP 18; TEMP 36.8; O2SAT 99
--- NOTE | 2021-07-25 11:06 | WPDANESEPPF ---
Anes - Initial Pre Proc Eval Procedure: Operation Date: 07/25/21 11:30 Proposed Procedures p Hysteroscopy Dilation and Curettage - Everton Carl MD Date/Time: 07/25/21 11:06 Surgeon: Everton Carl MD Pre Op Diagnosis: low grade inethel lesion, +HPV pap Patient Data Age: 51 Gender: F Height: 1.65 m Weight: 138.2 kg Last Vital Signs Temp 36.8 C 07/25/21 10:58 Pulse 89 07/25/21 10:58 Resp 18 07/25/21 10:58 BP 184/95 H 07/25/21 10:58 Pulse Ox 99 07/25/21 10:58 Allergies Allergy/AdvReac Type Severity Reaction Status Date / Time COVID-19 vaccine, mRNA, Allergy Severe Confusion Verified 07/18/21 10:31 [id number], [COVID-19 vaccine, mRNA-1273, LNP-S] moxifloxacin [Avelox] Allergy Severe anaphylaxis Verified 07/25/21 08:40 ,rash haloperidol [From Haldol] Allergy Hypertensio Verified 07/18/21 10:31 n Home Medications Medication Instructions Recorded Confirmed Type aspirin 81 mg tablet,delayed 81 mg PO DAILY 07/29/19 07/18/21 History release fluticasone propionate 50 1 spray NASAL DAILY PRN 07/29/19 07/18/21 History mcg/actuation nasal spray,suspension multivitamin 1 cap PO DAILY 07/29/19 07/18/21 History bupropion HCl 150 mg tablet,12 hr 150 mg PO DAILY #30 tablet 11/08/19 07/18/21 Rx sustained-release albuterol sulfate 90 mcg/actuation 1 inh INHALATION Q4H PRN #8.5 gm 07/06/20 07/18/21 Rx aerosol inhaler fluoxetine 40 mg capsule 40 mg PO DAILY #90 cap 09/17/20 07/18/21 Rx meclizine 25 mg tablet 25 mg PO TID PRN #90 tablet 02/22/21 07/18/21 Rx sumatriptan succinate 50 mg tablet 50 mg PO ONCE #14 tablet 03/15/21 07/18/21 Rx fexofenadine 180 mg tablet 180 mg PO DAILY #90 tablet 05/07/21 07/18/21 Rx triamterene 37.5 1 tablet PO DAILY #90 tablet 06/10/21 07/18/21 Rx mg-hydrochlorothiazide 25 mg tablet losartan 25 mg tablet 25 mg PO DAILY #90 tablet 06/12/21 07/18/21 Rx atorvastatin 40 mg tablet 40 mg PO DAILY #90 tablet 07/08/21 07/18/21 Rx terbinafine HCl 250 mg tablet 250 mg PO DAILY #90 tablet 07/08/21 07/18/21 Rx levothyroxine 200 mcg tablet 200 mcg PO DAILY #90 tablet 07/12/21 07/18/21 Rx nystatin 1 applic TOPICAL BID PRN 07/18/21 07/18/21 History levothyroxine 25 mcg tablet 25 mcg PO DAILY #90 tablet 07/22/21 Rx Patient hx anesthesia problems: post op nausea/vomiting Family hx anesthesia problems: none Results Review: All pre-operative results and documents have been reviewed as part of the pre-operative evaluation. [facility] Past Medical History Medical History ADHD ADHD Anemia Anxiety Arthritis Candidal intertrigo Chronic back pain Eczema HTN (hypertension) Hyperlipidemia Hypothyroid Migraine Migraine Mitral valve prolapse Onychomycosis Seasonal allergies Shingles UTI (urinary tract infection) Surgical History Surgical History History of cholecystectomy History of tonsillectomy History of tubal ligation Family History Family History Mother Hypertension Family history of diabetes mellitus in first degree relative Family history of congestive heart failure Father Cerebrovascular accident Family history of congestive heart failure Other Asthma Depression Diabetes mellitus Family history of anemia Family history of arthritis Family history of atrial fibrillation Family history of blood dyscrasia Family history of cardiovascular disease Family history of coronary artery disease Family history of elevated blood lipids Family history of malignant neoplasm Family history of migraine headaches Family history of obesity Family history of thyroid disease Social History Social History Smoking status: Never smoker Alcohol intake: current Alcohol use details: VERY RARE
--- NOTE | 2021-07-25 11:10 | WPDHPUPDATE1 ---
History and Physical Update Update Date/Time: 07/25/21 11:10 Plan for hysteroscopy, D&C, possible myosure History and Physical has been reviewed, including an updated exam of the patient. There are NO changes in the patient's condition. Risks, benefits, and alternatives have been discussed and questions answered. Patient agrees to proceed with procedure.
[2021-07-25] MEDS: LACTATED RINGERS 1,000 ML 30 ML IV CONT (11:11)
[2021-07-25] MEDS: ACETAMINOPHEN 500 MG TABLET 1000 MG PO (11:11)
[2021-07-25] MEDS: SCOPOLAMINE 1.5 MG PATCH TRANSDERM (11:14)
[2021-07-25] MEDS: KETOROLAC 30 MG/ML VIAL (*BKC) IV PUSH (11:45)
--- NOTE | 2021-07-25 12:07 | W.PM.PROC2 ---
Procedure Note - Detailed Date of Procedure 07/25/21 Pre-op Diagnosis low grade inethel lesion, +HPV pap Post-op Diagnosis same Procedure Performed hysteroscopy dilation & curettage Myosure polypectomy Surgeon Everton Carl MD Anesthesia MAC Indications abnormal uterine bleeding Findings There was an intracavitary mass noted, suspected uterine polyp. Normal tubal ostia bilaterally Description of Procedure 51 yo female who presents for hysteroscopy, D&C, myosure for AUB. She was counseled as to the indications, risks, benefits, and alternatives to surgery, with the risks including bleeding, infection, damage to surrounding organs, VTE, and complications of anesthesia. Her verbal and written consent was obtained. PROCEDURE: The patient was taken to the OR and general anesthesia induced. She was prepped and draped in Deon stirrups with support of the back and bilateral lower extremities. I/O catheterization performed of the bladder. The above findings were noted. A single tooth tenaculum was placed on the anterior lip of the cervix. The cervix was dilated with sequential Vicki dilators. Hysteroscopy, using a normal saline medium, was performed and showed the above findings. The endometrial lining was visualized and a intracavitary mass suspicious for polyp was noted from the anterior left endometrium was found. The Myosure device was then used to remove the lesion and sample the endometrial lining, restoring a normal appearing endometrial cavity. The tissue was sent to pathology. Sharp uterine curettage was then performed and tissue placed on Telfa. The tenaculum was removed and hemostasis was observed. The patient tolerated the procedure well. Sponge, lap, and needle counts were correct. The patient had SCD's on throughout the case for VTE prophylaxis. The patient was taken to the recovery room in stable condition. Estimated Blood Loss 25 Urine Output 100 Drains No Packing No Pathology yes (endometrial curettings, endometrial polyp ) Complications No immediate complications Condition stable Disposition PACU
[2021-07-25 12:11] VITALS: BP 148/69; PULSE 92; RESP 16; O2SAT 95
[2021-07-25 12:40] VITALS: BP 154/85; PULSE 81; RESP 16; O2SAT 95
[2021-07-25] MEDS: oxyCODONE HCL (*CRX) 5 MG TAB IR PO (12:44)
[2021-07-25 12:53] VITALS: BP 152/83; PULSE 72; RESP 16
== END 2021-07-25 12:53 | disposition home or self-care (01) ==
PROVIDERS: PCP Family Medicine; Visit Provider Student in an Organized Health Care Education/Training Program
PROC: 0U5B8ZZ Destruction of Endometrium, Via Natural or Artificial Opening Endoscopic (ICD-10-PCS; CPT 58563; principal; 2021-07-25 11:30)
DX: N93.9 Abnormal uterine and vaginal bleeding, unspecified (principal); R87.612 Low grade squamous intraepithelial lesion on cytologic smear of cervix (LGSIL); R87.810 Cervical high risk human papillomavirus (HPV) DNA test positive; N84.0 Polyp of corpus uteri; I10 Essential (primary) hypertension; E78.5 Hyperlipidemia, unspecified; E03.9 Hypothyroidism, unspecified; F90.9 Attention-deficit hyperactivity disorder, unspecified type; D64.9 Anemia, unspecified; F41.9 Anxiety disorder, unspecified; I34.1 Nonrheumatic mitral (valve) prolapse; Z79.82 Long term (current) use of aspirin; Z79.51 Long term (current) use of inhaled steroids; E66.01 Morbid (severe) obesity due to excess calories; Z68.43 Body mass index [BMI] 50.0-59.9, adult
CPT/HCPCS: 58558; 88305; A9270; J1885; J2250; J2405; J2704; J3010; J7030; J7120

== ENCOUNTER 2022-03-28 08:39 | Outpatient (CLI) | payer OTHER, SELFPAY ==
[2022-03-28 08:49] LABS: Hematocrit 37.8 % (35.0-49.0); Hemoglobin 12.2 g/dL (12.0-15.0); Mean Corpuscular HGB Conc 32.3 g/dL (32.0-36.0); Mean Corpuscular Volume 96.2 fL (78.0-102.0); Mean Platelet Volume 8.5 fl (9.2-11.8); Platelet Count Result 333 K/mm3 (150-420); Red Blood Count 3.93 M/mm3 (4.20-5.40); Red Cell Distribution Width 14.1 % (11.6-14.4); White Blood Count 8.9 K/mm3 (4.8-10.8)
[2022-03-28 09:34] LABS: Alanine Aminotransferase 26 U/L (14-59); Albumin Level 3.9 g/dL (3.4-5.0); Alkaline Phosphatase 86 U/L (46-116); Anion Gap 12 mmol/L (8-16); Aspartate Amino Transferase 16 U/L (15-37); Bilirubin,Total 0.2 mg/dL (0.00-1.00); Blood Urea Nitrogen 16 mg/dL (7-18); Calcium 8.9 mg/dL (8.5-10.1); Carbon Dioxide 24 mmol/L (21-32); Chloride 103 mmol/L (98-108); Estimated Glomerular Filt Rate > 60; Glucose 108 mg/dL (70-99); Osmolality Calculated 290 mOsm/kg (285-295); Potassium 4.2 mmol/L (3.5-5.1); Sodium 139 mmol/L (136-145)
[2022-03-28 09:36] LABS: Thyroid Stimulating Hormone Reflex > 96.00 u/IU/mL (0.36-3.74)
[2022-03-28 09:37] LABS: Free T4 Free Thyroxine Reflex 0.34 ng/dL (0.76-1.46)
== END 2022-03-28 08:40 | disposition home or self-care (01) ==
LOC: CHSLAB 08:41
PROVIDERS: PCP Family Medicine; Visit Provider Family Medicine
DX: J18.9 Pneumonia, unspecified organism (principal); E66.9 Obesity, unspecified; E11.9 Type 2 diabetes mellitus without complications
CPT/HCPCS: 36415; 80053; 84439; 84443; 85027

== ENCOUNTER 2022-04-09 07:27 | Outpatient (CLI) | payer OTHER, SELFPAY ==
[2022-04-09 08:54] LABS: Hemoglobin A1C 6.1 % (<5.7)
== END 2022-04-09 07:28 | disposition home or self-care (01) ==
LOC: ANHLAB 07:29
PROVIDERS: PCP Family Medicine; Visit Provider Family Medicine
DX: E11.9 Type 2 diabetes mellitus without complications (principal)
CPT/HCPCS: 36415; 83036

== ENCOUNTER 2022-08-21 07:18 | Outpatient (CLI) | payer OTHER, SELFPAY ==
[2022-08-21 08:27] LABS: Alanine Aminotransferase 26 U/L (6-35); Albumin Level 4.8 g/dL (3.5-5.1); Alkaline Phosphatase 98 U/L (38-126); Anion Gap 9 mmol/L (8-16); Aspartate Amino Transferase 29 U/L (14-36); Bilirubin,Total 0.5 mg/dL (0.2-1.3); Blood Urea Nitrogen 17 mg/dL (7-17); Calcium 9.7 mg/dL (8.4-10.2); Carbon Dioxide 27 mmol/L (22-30); Chloride 100 mmol/L (98-107); Cholesterol 226 mg/dL (0-200); Estimated Glomerular Filt Rate > 60; Glucose 100 mg/dL (65-110); HDL Direct 41 mg/dL; Potassium 4.1 mmol/L (3.4-5.0); Sodium 136 mmol/L (137-145); Triglycerides 323 mg/dL (<150)
[2022-08-21 08:38] LABS: LDL Cholesterol Direct 127 mg/dL
[2022-08-21 09:37] LABS: Free T4 Free Thyroxine 1.54 ng/mL (0.78-2.19)
== END 2022-08-21 07:19 | disposition home or self-care (01) ==
LOC: ANHLAB 07:20
PROVIDERS: PCP Family Medicine; Visit Provider Nurse Practitioner Family
DX: I10 Essential (primary) hypertension (principal); E78.5 Hyperlipidemia, unspecified; G43.909 Migraine, unspecified, not intractable, without status migrainosus
CPT/HCPCS: 36415; 80053; 80061; 84439; 84443

== ENCOUNTER 2022-09-19 09:21 | Outpatient (CLI) | payer OTHER, SELFPAY ==
[2022-09-19 09:40] LABS: Basophils Absolute Auto 0.06 K/mm3 (0.00-0.10); Basophils Percent Auto 0.7 % (0.0-1.0); Eosinophils Absolute Auto 0.15 K/mm3 (0.02-0.50); Eosinophils Percent Auto 1.8 % (1.0-6.0); Hematocrit 37.9 % (35.0-49.0); Hemoglobin 12.3 g/dL (12.0-15.0); Immature Granulocyte Absolute 0.09 K/mm3 (0.00-0.00); Immature Granulocyte Percent A 1.1 % (0.0-0.0); Lymphocytes Absolute Auto 2.56 K/mm3 (1.10-4.50); Lymphocytes Percent Auto 30.5 % (18.0-42.0); Mean Corpuscular HGB Conc 32.5 g/dL (32.0-36.0); Mean Corpuscular Hemoglobin 29.4 pg (27.0-31.0); Mean Corpuscular Volume 90.5 fL (78.0-102.0); Mean Platelet Volume 8.6 fl (9.2-11.8); Monocytes Absolute Auto 0.38 K/mm3 (0.10-0.90); Monocytes Percent Auto 4.5 % (2.0-11.0); Neutrophils Absolute Auto 5.2 K/mm3 (1.7-7.2); Neutrophils Percent Auto 61.4 % (50.0-70.0); Platelet Count Result 389 K/mm3 (150-420); Red Blood Count 4.19 M/mm3 (4.20-5.40); Red Cell Distribution Width 13.5 % (11.6-14.4); White Blood Count 8.4 K/mm3 (4.8-10.8)
[2022-09-19 10:13] LABS: Anion Gap 12 mmol/L (8-16); Blood Urea Nitrogen 17 mg/dL (7-18); Calcium 9.1 mg/dL (8.5-10.1); Carbon Dioxide 26 mmol/L (21-32); Chloride 103 mmol/L (98-108); Estimated Glomerular Filt Rate 58; Glucose 146 mg/dL (70-99); Osmolality Calculated 296 mOsm/kg (285-295); Potassium 4.2 mmol/L (3.5-5.1); Sodium 141 mmol/L (136-145)
[2022-09-19 10:34] LABS: Free T4 Free Thyroxine 1.37 ng/dL (0.76-1.46); Thyroid Stimulating Hormone 0.41 uIU/mL (0.36-3.74)
[2022-09-19 11:11] LABS: Hemoglobin A1C 6.4 % (<5.7)
== END 2022-09-19 09:22 | disposition home or self-care (01) ==
LOC: CHSLAB 09:23
PROVIDERS: Nurse Practitioner Family; PCP Family Medicine; Visit Provider Family Medicine
DX: E11.9 Type 2 diabetes mellitus without complications (principal); E03.9 Hypothyroidism, unspecified; I16.0 Hypertensive urgency; I10 Essential (primary) hypertension
CPT/HCPCS: 36415; 80048; 83036; 84439; 84443; 85025

== ENCOUNTER 2022-11-13 07:13 | Emergency (ER) | payer OTHER, SELFPAY ==
[2022-11-13] VITALS (9 sets, daily range): BP systolic 133–158; BP diastolic 62–88; PULSE 73–75; RESP 16–18; TEMP 36.6; O2SAT 94–100
--- NOTE | ~2022-11-13 | CT_ITS ---
CT of the Abdomen and Pelvis: Indication: Abdominal pain Technique: 2.5 mm axial scans were obtained through the abdomen and pelvis following intravenous adm inistration of 100 cc of Omnipaque 350. Dose reduction technique was used on this scan by utilizing a utomated exposure control and iterative reconstruction technique. The dose-length product (DLP) was 1 634.22 mGy-cm. Findings: Scans through the lung bases are unremarkable. The liver, spleen, pancreas, right adrenal gland, and kidneys are within normal limits. 1.9 cm left a drenal nodule is present, indeterminate. Cholecystectomy clips are present. No evidence of aortic ane urysm. No lymphadenopathy. No bowel obstruction or bowel wall thickening. There is no evidence to suggest acute appendicitis. Images through the pelvis were performed. Urinary bladder unremarkable. No adnexal mass evident. No a scites. Impression: 1.9 cm left adrenal nodule, indeterminate. Follow-up nonemergent MR recommended to assess for adenoma versus other lesion. No acute abnormality seen. Reviewed, dictated and finalized at [facility]. Impression: 1.9 cm left adrenal nodule, indeterminate. Follow-up nonemergent MR recommended to assess for adenoma versus other lesion. No acute abnormality seen.
--- NOTE | 2022-11-13 07:30 | ED.GENADULT ---
HPI - General Adult General Chief complaint: Headache Stated complaint: abdominal pain, vomiting Time Seen by Provider: 11/13/22 07:20 History of Present Illness HPI narrative: 52-year-old female presenting to the emergency department for evaluation of migraine headache that started at 2 AM and epigastric abdominal pain. Patient states that the migraine is similar to her classic migraine worse frontal and radiates down her neck. Patient states that she does not often have abdominal pain and is describing right upper quadrant and epigastric abdominal pain. Patient reports a prior history of cholecystectomy. Related Data Home Medications Medication Instructions Recorded Confirmed aspirin 81 mg tablet,delayed 81 mg PO DAILY 07/29/19 10/17/22 release fluticasone propionate 50 1 spray intranasal DAILY PRN 07/29/19 10/17/22 mcg/actuation nasal Allergy Symptoms spray,suspension multivitamin 1 cap PO DAILY 07/29/19 10/17/22 Allergies Allergy/AdvReac Type Severity Reaction Status Date / Time COVID-19 vaccine, mRNA, Allergy Severe Confusion Verified 11/13/22 07:14 [id number], [COVID-19 vaccine, mRNA-1273, LNP-S] moxifloxacin [Avelox] Allergy Severe anaphylaxis Verified 11/13/22 07:14 ,rash haloperidol [From Haldol] Allergy Hypertensio Verified 11/13/22 07:14 n Review of Systems Review of Systems: All systems reviewed & are unremarkable except as noted in HPI and below PMFSH Past Medical History Medical History ADHD ADHD Anemia Anxiety Arthritis Candidal intertrigo Chronic back pain Eczema HTN (hypertension) Hyperlipidemia Hypothyroid Migraine Migraine Mitral valve prolapse Onychomycosis Seasonal allergies Shingles UTI (urinary tract infection) Surgical History Surgical History History of cholecystectomy History of tonsillectomy History of tubal ligation Family History Family History Mother Hypertension Family history of diabetes mellitus in first degree relative Family history of congestive heart failure Father Cerebrovascular accident Family history of congestive heart failure Other Asthma Depression Diabetes mellitus Family history of anemia Family history of arthritis Family history of atrial fibrillation Family history of blood dyscrasia Family history of cardiovascular disease Family history of coronary artery disease Family history of elevated blood lipids Family history of malignant neoplasm Family history of migraine headaches Family history of obesity Family history of thyroid disease Social History Social History Smoking status: Never smoker Alcohol intake: current Alcohol use details: VERY RARE Substance use: never Substance use type: does not use Living arrangements: with family Additional living arrangements comments: DAUGHTER Gender identity (if verbalized by the patient): Female Spiritual care concerns: No Exam Narrative: APPEARANCE: Well appearing, no pain, no distress, well-nourished. HEAD: normocephalic, atraumatic. EYES: PERRLA/EOMI, conjunctivae clear. NOSE: Normal no drainage NECK: Supple. No adenopathy, no masses. RESPIRATORY: Airway patent, respirations nonlabored. Clear to auscultation bilaterally, no rales, rhonchi, wheezing. CARDIOVASCULAR: Regular rate and rhythm without murmurs rubs or gallops. ABDOMINAL: Normal bowel sounds, nondistended, epigastric and diffuse abdominal tenderness MUSCULOSKELETAL: Moves all extremities. Strength/ROM intact, No edema, No calf tenderness. NEURO: Alert. Cranial nerves II through XII intact. Grossly intact SKIN: Warm, dry. Normal Color Course Course Emergency Course: 52-year-old female presented to the ED for evaluation of migraine and abdominal
[2022-11-13] MEDS: SODIUM CHLORIDE 0.9% IV 1,000 ML 500 ML IV CONT (08:06)
[2022-11-13] MEDS: PROCHLORPERAZINE EDISYLATE 10 MG/2 ML VIAL IV PUSH (08:06)
[2022-11-13] MEDS: fentaNYL CITRATE INJ (*CRX) 100 MCG/2 ML VIAL 50 MCG IV PUSH (08:06)
[2022-11-13] MEDS: diphenhydrAMINE HCl INJ 50 MG/ML VIAL 25 MG IV PUSH (08:06)
[2022-11-13 08:15] LABS: Basophils Percent Auto 0.5 % (0.2-1.2); Eosinophils Absolute Auto 0.2 K/mm3 (0-0.3); Eosinophils Percent Auto 2.3 % (0-4.4); Hematocrit 40.8 % (37.0-47.0); Hemoglobin 13.1 g/dL (12.0-15.0); Immature Granulocyte Absolute 0.06 K/mm3 (0.00-0.031); Immature Granulocyte Percent A 0.7 % (0-0.5); Lymphocytes Absolute Auto 0.66 K/mm3 (0.9-3.2); Lymphocytes Percent Auto 7.8 % (18.3-44.2); Mean Corpuscular HGB Conc 32.1 g/dl (32-36); Mean Corpuscular Hemoglobin 28.9 pg (26-34); Mean Corpuscular Volume 90.1 fl (80-100); Monocytes Absolute Auto 0.3 K/mm3 (0.1-0.6); Monocytes Percent Auto 3.2 % (2.6-8.5); Neutrophils Absolute Auto 7.2 K/mm3 (1.3-6.7); Neutrophils Percent Auto 85.5 % (45.5-73.1); Platelet Count Result 315 k/mm3 (150-375); Red Blood Count 4.53 M/mm3 (4.2-5.4); Red Cell Distribution Width 14.1 % (11.5-14.5); White Blood Count 8.4 K/mm3 (4.5-10.0)
[2022-11-13 08:27] LABS: INR 0.9; Lactic Acid Reflex 2.1 mmol/L (0.7-2.0)
[2022-11-13 08:28] LABS: Alanine Aminotransferase 34 U/L (6-35); Albumin Level 4.6 g/dL (3.5-5.1); Alkaline Phosphatase 103 U/L (38-126); Anion Gap 13 mmol/L (8-16); Aspartate Amino Transferase 31 U/L (14-36); Bilirubin,Total 0.5 mg/dL (0.2-1.3); Blood Urea Nitrogen 22 mg/dL (7-17); Calcium 8.8 mg/dL (8.4-10.2); Carbon Dioxide 25 mmol/L (22-30); Chloride 100 mmol/L (98-107); Estimated CRCL calculation 89 ml/min; Estimated Glomerular Filt Rate > 60; Glucose 129 mg/dL (65-110); Potassium 3.7 mmol/L (3.4-5.0); Sodium 138 mmol/L (137-145)
--- NOTE | 2022-11-13 08:46 | PC.NURSE ---
Patient off unit to CT>
[2022-11-13 11:11] LABS: Reflex Lactic Acid Yes or No Add Lactic
== END 2022-11-13 09:59 | disposition home or self-care (01) ==
PROVIDERS: Emergency Provider Emergency Medicine; PCP Family Medicine
DX: G43.909 Migraine, unspecified, not intractable, without status migrainosus (principal); R11.2 Nausea with vomiting, unspecified; R10.9 Unspecified abdominal pain; I10 Essential (primary) hypertension; I34.1 Nonrheumatic mitral (valve) prolapse; E78.5 Hyperlipidemia, unspecified; E03.9 Hypothyroidism, unspecified; M19.90 Unspecified osteoarthritis, unspecified site; F90.9 Attention-deficit hyperactivity disorder, unspecified type; Z87.440 Personal history of urinary (tract) infections; Z79.84 Long term (current) use of oral hypoglycemic drugs; Z79.82 Long term (current) use of aspirin; Z90.49 Acquired absence of other specified parts of digestive tract; E27.8 Other specified disorders of adrenal gland
CPT/HCPCS: 36415; 74177; 80053; 83605; 85025; 85610; 85730; 96361; 96374; 96375; 99284; J0780; J1200; J3010; J7030; Q9967

== ENCOUNTER 2023-12-22 09:25 | Outpatient (CLI) | payer OTHER, SELFPAY ==
[2023-12-22 10:43] LABS: Uric Acid 8.3 mg/dL (2.6-6.0)
== END 2023-12-22 09:26 | disposition home or self-care (01) ==
LOC: CHSLAB 09:29
PROVIDERS: PCP Family Medicine; Visit Provider Family Medicine
DX: M10.9 Gout, unspecified (principal)
CPT/HCPCS: 36415; 84550

== ENCOUNTER 2024-11-10 16:10 | Outpatient (CLI) | payer OTHER, MEDICAID, SELFPAY ==
--- OUTSIDE RECORDS SUMMARY | 2024-11-10 16:16 | XMS_ITS | Referral Summary ---
Author Organization [facility] Building Address [address] [place] [address] Care Team Providers Care Rn First Assist Name Role Phone Referral, Self Unavailable Unavailable Referring, Unknown MD Primary Care Provider Unav ailable Allergies Active Allergy Reactions Criticality Noted Date Comments Moxifloxacin Rash Medium 08/05/2019 Jerry heart rate, high blood pressure Haloperidol Palpitations Low 09/02/2019 Medications triamterene-hydroC HLOROthiazide (triamterene-hydro CHLOROthiazide) 37.5-25 mg per tablet/capsule Take 1 tablet/capsule by mouth every morning Active losartan (COZAAR) 25 mg tabletIndications: hypertension Take 25 mg by mouth every morning 07/18/19 20 Active levothyroxine (SYNTHROID) 200 mcg tabletIndications: hypothyroidism Take 200 mcg by mouth every morning 07/18/19 20 Active FLUoxetine (PROzac) 40 mg capsuleIndications :depression Take 60 mg by mouth every morning 07/18/19 20 Active buPROPion SR (WELLBUTRIN SR) 150 mg 12 hr tabletIndications: Anxiety with Depression Take 150 mg by mouth every morning 07/18/19 20 Active atorvastatin (LIPITOR) 40 mg tabletIndications: hyperlipidemia Take 40 mg by mouth every morning 07/18/19 20 Active benzonatate (TESSALON) 100 mg capsuleIndications :Cough Take 100 mg by mouth 2 (two) times a day as needed 07/29/19 20 Active ofloxacin (FLOXIN) 0.3 % otic solution Administer 4 drops into the left ear 2 (two) times a day 1 Bottle 3 08/16/19 20 Active Additional Information Patient taking differently:4 dropright ear2 times daily,Indications: ear, Informant: Self, Reported on 09/02/2019 metoprolol (LOPRESSOR) 25 mg tabletIndications: hypertension Take 25 mg by mouth 2 (two) times a day Active topiramate (TOPAMAX) 200 mg tabletIndications: Migraine Prevention Take 200 mg by mouth 2 (two) times a day Active fexofenadine (SUZETTE) 180 mg tabletIndications: Allergic Conjunctivitis,All ergic Rhinitis Take 180 mg by mouth daily before breakfast Active guaiFENesin ER (MUCINEX) 600 mg 12 hr tabletIndications: Cough Take 1,200 mg by mouth 2 (two) times a day Active fluticasone propionate (FLONASE) 50 mcg/actuation nasal sprayIndications:A llergic Conjunctivitis,All ergic Rhinitis Administer 1 spray into each nostril as needed for rhinitis Active albuterol HFA (PROVENTIL HFA,VENTOLIN HFA,PROAIR HFA) 90 mcg/actuation inhalerIndications :sob Inhale 2 puffs every 6 (six) hours as needed for wheezing Active HYDROcodone-acetam inophen (NORCO) 5-325 mg per tabletIndications: Pain Take 1 tablet by mouth every 6 (six) hours as needed for pain 15 tablet 11/01/19 20 Active ciprofloxacin-dexA METHasone (CIPRODEX) otic suspension Administer 4 drops into the left ear 4 (four) times a day 7.5 mL 3 10/31/19 20 Active ondansetron ODT (ZOFRAN-ODT) 4 mg disintegrating tablet Take 1 tablet (4 mg total) by mouth every 8 (eight) hours as needed for nausea or vomiting 20 tablet 11/01/19 20 Active Active Problems Problem Noted Date Diagnosed Date Mixed conductive and sensori neural hearing loss of right ear with restricted hearing of left ear 08/06/2019 Social History Tobacco Use Types Packs/Day Years Used Date Smoking Tobacco: Never Smokeless Tobacco: Never Alcohol Use Standard Drinks/Week Comments Not Currently 0 (1 standard drink = 0.6 oz pur e alcohol) Comments No Sex and Gender Information Value Date Recorded Sex Assigned at Not on file Legal Sex Female 1:47 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 Gender Identity Not on file Sexual Orientation Not on file Last Filed Vital Signs Vital Sign Reading Time Taken Comments Blood Pressure 115/67 11/01/2019 11:10 AM CDT Pulse 59 11/01/2019 11:20 AM CDT Temperature 36 C (96.8 F) 11/01/2019 10:38 AM CDT Respiratory Rate 13 11/01/2019 11:20 AM CDT Oxygen Saturation 96% 11/01/2019 11:20 AM CDT Inhaled Oxygen Concentration - - Weight 115.7 kg (255 lb) 11/01/2019 6:00 AM CDT Height 165.1 cm (5' 5) 11/01/2019 6:00 AM CDT Body Mass Index 42.43 11/01/2019 6:00 AM CDT Plan of Treatment Not on file Medical Devices Implanted Type Area Operations Dispatcher Device Identifier Shelf Expiration Date Model / Serial / Lot [employer] 604 [employer] .8mm 2.3mm 3-7mm Total Center Integrate Shoe 3mm Prosthesis - [id number] Implanted:Qty: 1 on 11/01/2019 by Gaudencio Ledbetter MD at [facility] Right: Ear [employer] [id number] 10/18/2023 604 / / [id number] Insurance [facility] Address: [facility] [address] [place] [address] [facility] Address: [address] [address] Care Teams Rn First Assist Relationship Specialty Start Date End Date Referring, Unknown, MD PCP - General Pediatrics 10/05/19 Referral, Self Referring Physician Otolaryngology 08/05/19
--- OUTSIDE RECORDS SUMMARY | 2024-11-10 16:16 | XMS_ITS | CONTINUITY OF CARE DOCUMENT ---
Author Name riana mayers Address Unknown Organization [facility] Address [id number] [place] [address] [address] [place] [address] Phone [phone] Care Team Providers Care Building Energy Consultant Name Role Phone riana mayers Unavailable Unavailable
--- OUTSIDE RECORDS SUMMARY | 2024-11-10 16:16 | XMS_ITS | Clinical Summary ---
Author Organization [facility] Address [address] [place] [address] Care Team Providers Care Hospital Insurance Representative Name Role Phone Unavailable Primary Care Provider Unavailabl e Allergies Active Allergy Reactions Criticality Noted Date Comments Haloperidol Palpitations Low 09/02/2019 Moxifloxacin Hypertension,Rash Medium 09/26/2018 Jerry heart rate, high blood pressure Medications albuterol sulfate HFA 90 mcg/actuation aerosol inhaler Take 2 Puffs by inhalation. Active amLODIPine (NORVASC) 10 mg tablet Take 10 mg by mouth daily. 3 Active atorvastatin (LIPITOR) 40 mg tablet Take 40 mg by mouth daily. 3 Active buPROPion HCL (WELLBUTRIN SR) 150 mg Sustained Release 12 hour tablet Take 150 mg by mouth daily. 3 Active hydrALAZINE (APRESOLINE) 25 mg tablet TAKE 1 TABLET BY MOUTH 3 TIMES DAILY NEEDED 3 Active levothyroxine 25 mcg tablet TAKE ONE TABLET BY MOUTH EVERY DAY WITH 200 MCG DOSE 3 Active metoprolol tartrate (LOPRESSOR) 50 mg tablet 3 Active metFORMIN (GLUCOPHAGE) 500 mg tablet Take 500 mg by mouth 2 times daily. 3 Active triamterene-hy droCHLOROthiaz franck (MAXZIDE 25) 37.5-25 mg tablet Take 1 Tablet by mouth daily. Active meclizine (ANTIVERT) 25 mg tablet Take 25 mg by mouth 3 times daily as needed for Dizziness. Active SUMAtriptan (IMITREX) 100 mg tablet Take 100 mg by mouth see administration instructions. may repeat in 2 hours; max dose 200mg in 24 hours Active Active Problems No known active problems Social History Tobacco Use Types Packs/Day Years Used Date Smoking Tobacco: Never Assessed Comments Unknown Sex and Gender Information Value Date Recorded Sex Assigned at Not on file Legal Sex Female 2:31 PM CDT Gender Identity Not on file Sexual Orientation Not on file Last Filed Vital Signs Vital Sign Reading Time Taken Comments Blood Pressure 187/113 12/25/2022 2:47 PM CDT Pulse 73 12/25/2022 2:47 PM CDT Temperature 37.5 C (99.5 F) 12/25/2022 2:47 PM CDT Respiratory Rate - - Oxygen Saturation 98% 12/25/2022 2:47 PM CDT Inhaled Oxygen Concentration - - Weight - - Height - - Body Mass Index - - Plan of Treatment Health Maintenance Due Date Last Done Comments DTAP/TDAP/TD VACCINES (1 - Tdap) 02/15/1987 HEPATITIS B VACCINES (1 of 3 - 19+ 3-dose series) 01/21 HPV/Cotest (21-29) 02/15/1989 CERVICAL CANCER SCREENING 02/15/1998 HPV/Cotest (30-65) 02/15/1998 PAP SMEAR 02/15/1998 BREAST CANCER SCREENING 2008 COLORECTAL SCREENING 02/15/2013 Colorectal Cancer Screening 02/15/2013 FIT-DNA Q 3 years 02/15/2013 FIT/FOBT Q 1 year 02/15/2013 Flex Sig/CT Colonography Q 5 years 02/15/2013 ZOSTER VACCINE (1 of 2) 02/15/2018 INFLUENZA VACCINE (#1) 2024 Insurance [facility] [place]UL [place]LEVINS [id number] [facility] PLAN OF [facility]
--- OUTSIDE RECORDS SUMMARY | 2024-11-10 16:16 | XMS_ITS | Continuity of Care Document ---
Author Name [facility] Address [address] [place] [address] Organization [facility] Care Team Providers Care Director Of [facility] Name Role Phone [facility] Unavailable Unavailable Problems Problem Status Onset Date Problem Type Date of Resolution Comments Source Morbid obesity (disorder) Active Condition Body mass index 40+ - severely obese (finding) Diagnosis Essential hypertension (disorder) Diagnosis Obstructive sleep apnea syndrome (disorder) Diagnosis Hyperlipidemia (disorder) Diagnosis Hormone replacement monitoring status (finding) Diagnosis Morbid (severe) obesity due to excess calories Active Diagnosis Allergies, Adverse Reactions, Alerts Substance Category Reaction Severity Reaction type Status Date Reported Comments Source lisinopril Assertion cough Severe Drug allergy Active [facility] Haldol Assertion tachycard ia, HTN, SOB Severe Drug allergy Active [facility] Avelox Assertion tachycard ia, HTN, rash, SOB Severe Drug allergy Active [facility] Unlisted Substance - See Comment<sup >1</sup> Assertion altered mental status, syncope Drug allergy Active covid vaccination [facility] Consultation Notes Results Value Date Source General Surgery Clinic Note Chief Compla int four month post op History of Present Illness Provider Located: Bariatric clinic Patient Located: Home or non-medical facility Consent: verbal consent for this telehealth visit was obtained from patient or guardian prior to beginning this encounter. Risks (tech failure, privacy and security, incomplete examination), and benefits (reduced exposure to infectious disease, convenience) of using a virtual platform were reviewed and addressed prior to beginning this encounter. Visit type: [facility] telehealth postoperative follow-up 4 months s/p LSG to treat preoperative obesity/morbid obesity and associated comorbidities. Date of Procedure: 09/03/23, Dr. Gil Last EGD/EGJ: No scopes obtained preoperatively or postoperatively to date. Highest weight with [place] Bariatric: 142.5 kg Immediate Preop wt: 137.2 kg Last visit wt: 129 kg Current weight: 113.8 kg Symptoms: Occasional nausea and vomiting 2-3 times per week, ocassional constipation. Denies diarrhea. GERD/Reflux: No Dysphagia: No Taking vitamins: No, not everyday Taking PPI: No Exercise: 7,000 -8,000 steps per day. not currently doing resistance training, plans to start, is doing research on different exercises. Adequate Protein: about 60 g daily Adequate Fluid: No Medications changes since operation: Yes discontinued one blood pressure medication Patient reports the following positive changes following WLS or improvement of the following obesity related comorbidities: Weight loss, decreased blood pressure medication Patient reports improvement or resolution of the following comorbidities: Diabetes: NA GERD: NA Hyperlipidemia: No, continues to take atorvastatin. Will recheck need at next PCP visit Hypertension: Yes, reports she took 5 blood pressure medications prior to surgery and has discontinued one pill. Will continue to monitor with PCP. Sleep Apnea: No, has never worn CPAP like recommended Mild dermatitis around incisions at one week post op but that has improved. Encouraged taking bariatric multivitamin daily and continued use of calcium citrate and vitamin D. Patient not meeting protein or fluid goals, discussed goals and encouraged her to increase daily intake. Review of Systems Denies bloating, diarrhea, heart burn, dysphagia, regurgitation. Endorses occasional nausea, vomiting, and constipation. Denies chest pain, shortness of breath, leg swelling A 14 point ROS was otherwise normal except where stated above and in the HPI Physical Exam Vitals and Measurements HT: 161.2 cm WT: 113.8 kg BMI: 43.8 Clinic Procedure Assessment/Plan 1) Class 3 Obesity, BMI: 43.8 2) Status Post LSG Overall, patient is doing well postoperatively. -- Congratulated patient on weight loss success to date. -- Follow up in 2 months per protocol. Will obtain full bariatric lab panel at next visit. -- Modifications to standard protocol: No -Discussed the importance of adequate protein intake (65-80g/day). Patient gradually increasing post-operatively. --Encouraged use of daily bariatric multivitamins. 3) History of dermatitis around incisions --Has completely resolved 4) Nausea and vomiting --Encouraged food journaling to narrow down potential causes --Discussed recommendations on portion size, eating food over 20-30 minutes --Encouraged adequate fluid and protein intake --Discussed contacting clinic if symptoms worsen or to go to ER if symptoms are unbearable 5) Constipation --Encouraged increased fluid intake and dietary fiber intake Dietary counseling and surveillance -Food journalling: Encouraged patient to track and monitor nutritional intake -encouraged measurement of portion sizes, focusing on protein intake Exercise counseling -encouraged activity most days of the week, focusing on ability of what patient is capable of performing, working to increase, as able. -encouraged strength training activities to build and maintain lean body mass, as able Patient understood and agreed to above plan. Problem List/Past Medical History Ongoing Morbid obesity Historical No qualifying data Procedure/Surgical History BTL clarisa D and C Right tympanoplasty tonsillectomy Medications atorvastatin 40 mg oral tablet, 40 mg= 1 Tablet(s), Oral, Daily calcium-vitamin D 500 mg-5 mcg (200 intl units) oral tablet, 1 Tablet(s), Oral, bid celecoxib 200 mg oral capsule, 200 mg= 1 capsule(s), Oral, bid FLUoxetine 40 mg oral capsule, 40 mg= 1 capsule(s), Oral, Daily hydrALAZINE 25 mg oral tablet, 25 mg= 1 Tablet(s), Oral, bid hydrochlorothiazide-triamterene 25 mg-37.5 mg oral tablet, 1 Tablet(s), Oral, Daily levothyroxine, 225 mcg, Daily losartan 50 mg oral tablet, 100 mg= 2 Tablet(s), Oral, Daily magnesium oxide 400 mg oral capsule, 400 mg= 1 capsule(s), Oral, Daily meclizine 25 mg oral tablet, 25 mg= 1 Tablet(s), Oral, bid metoprolol tartrate 50 mg oral tablet, 50 mg= 1 Tablet(s), Oral, bid, PRN Norvasc 10 mg oral tablet, 10 mg= 1 Tablet(s), Oral, Daily pantoprazole 40 mg oral delayed release tablet, 40 mg= 1 Tablet(s), Oral, Daily SUMAtriptan 50 mg oral tablet, See instructions, Oral Xarelto 10 mg oral tablet, 10 mg= 1 Tablet(s), Oral, Daily Allergies Avelox (tachycardia, HTN, rash, SOB) Haldol (tachycardia, HTN, SOB) lisinopril (cough) Unlisted Substance - See Comment (altered mental status, syncope) Social History Smoking Status Never smoker Family History Immunizations Health Maintenance Lab Results Diagnostic Results Visit Information Attending Physician: Saige BURGER Visit Date: 01/12/2024 01/12/2024 Vital Signs Vital Sign Value Date Comments Source Height (cm) 161.2 cm 01/12/2024 15:24:00 [facility] Weight (kg) 113.8 kg 01/12/2024 15:24:00 [facility] BMI 43.8 kg/m2 01/12/2024 15:24:00 [facility] Encounters Location Location Details Encounter Type Encounter Number Reason For Visit Attending Provider ADM Date DC Date Status Source [facility] [id number] Saige Stephenson 01/11 13:17 :34 01/12 04:59 :59 [facility] Non-Admit [id number] Demetris Gil 02/22 13:06 :00 02/23 04:59 :59 [facility] Non-Admit [id number] Luis Potts 02/22 13:16 :20 02/23 04:59 :59 [facility] Non-Admit [id number] Luis Potts 08/30 12:41 :54 08/31 04:59 :59 [facility] Procedures Procedure Code Date Perfomer Comments Source tonsillectomy [facility] Right tympanoplasty [facility] Social History Social History Date Source No data available for this section 08/31/2024 [facility] No data available for this section 02/24/2024 [facility] No data available for this section 01/13/2024 [facility]
--- OUTSIDE RECORDS SUMMARY | 2024-11-10 16:16 | XMS_ITS | Clinical Summary ---
Author Organization [facility] Address [address] [place] [address] Care Team Providers Care Core Paster Name Role Phone Unavailable Primary Care Provider Unavailabl e Source Comments [facility],non-owned Affiliates and Associated Physician Practices is amultiple site organization consisting of ambulatory clinics and hospital sitesin [place], [place], [place] and [place]. This disclosure is being madepursuant to the Care Everywhere program and may not contain all information available regarding this patient. Last updated 18.[facility] Allergies Active Allergy Reactions Criticality Noted Date Comments Moxifloxacin Rash,Elevated Blood Pressure Medium 09/26 Medications * Be aware that medications may not be up to date on this document. Alwaysverify current medications with the patient. 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 Gender Identity Not on file Sexual Orientation Not on file Last Filed Vital Signs Vital Sign Reading Time Taken Comments Blood Pressure 128/80 09/26/2018 2:47 PM CDT Pulse 69 09/26/2018 2:47 PM CDT Temperature 36.7 C (98.1 F) 09/26/2018 2:47 PM CDT Respiratory Rate 16 09/26/2018 2:47 PM CDT Oxygen Saturation 97% 09/26/2018 2:47 PM CDT Inhaled Oxygen Concentration - - Weight 119.3 kg (263 lb) 09/26/2018 2:47 PM CDT Height 165.1 cm (5' 5) 09/26/2018 2:47 PM CDT Body Mass Index 43.77 09/26/2018 2:47 PM CDT Plan of Treatment Health Maintenance Due Date Last Done Comments COLOGUARD (AGES 45-75) - COL ON CA SCREENING 1968 COLON MONITORING 1968 COLONOSCOPY - COLON CA SCREENING 1968 CT COLONOGRAPHY - COLON CA SCREENING 1968 Colorectal Cancer Screening 1968 FIT - COLON CA SCREENING 1968 FLEX SIG - COLON CA SCREENING 1968 LIPID TESTING 1968 MAMMOGRAM 1968 HIV SCREENING 02/15/1983 HEPATITIS C SCREENING 02/11/1986 DTAP/TDAP/TD VACCINES (1 - Tdap) 02/15/1987 HEPATITIS B VACCINE (1 of 3 - 19+ 3-dose series) 02/15/1987 PNEUMOCOCCAL VACCINE 50+ (1 of 1 - PCV) 02/15/2018 ZOSTER VACCINE (1 of 2) 02/15/2018 SCREENING FOR DIABETES 09/26/2018 COVID-19 VACCINE (1 - 2023-2 5 season) 2024 DEPRESSION SCREENING 06/22/2024 INFLUENZA VACCINE (Season Ended) 2025 HIB VACCINE Aged Out No longer eligi ble based on patient's age to complete this topic HPV VACCINE Aged Out No longer eligi ble based on patient's age to complete this topic MENINGOCOCCAL (Group B) VACC INE SHARED DECISION-MAKING Aged Out No longer eligibl e based on patient's age to complete this topic MENINGOCOCCAL GROUPS A/C/Y/W VACCINE Aged Out No longer eligible b ased on patient's age to complete this topic Insurance [facility] [place] [address] [facility] [place] [address]
--- OUTSIDE RECORDS SUMMARY | 2024-11-10 16:16 | XMS_ITS | Clinical Summary ---
Author Organization [facility] Address [address] [place] [address] Care Team Providers Care Administrative Resident Name Role Phone Referral, Self Unavailable Unavailable [...] with restricted hearing of left ear 08/06/2019 Surgical History Surgery Date Site/Laterality Comments CHOLECYSTECTOMY 06/22/2016 - 06/21/2017 TONSILLECTOMY EAR SURGERY Medical History Medical History Date Comments Allergic rhinitis Hypertension Migraines Depression PONV (postoperative nausea and vomiting) Family History Medical History Relation Name Comments Wagners Sister Anesthesia problems Neg Hx Relation Name Status Comments Sister Social History Tobacco Use Types Packs/Day Years Used Date Smoking Tobacco: Never Smokeless Tobacco: Never Alcohol Use Standard Drinks/Week Comments Not Currently 0 (1 standard drink = 0.6 oz pur e alcohol) Comments No Sex and Gender Information Value Date Recorded Sex Assigned at Not on file 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 Gender Identity Not on file Sexual Orientation Not on file Obstetrics History Last Filed Vital Signs Vital Sign Reading [...] on file Medical Devices Implanted Type [employer] Counselor Device Identifier Shelf Expiration Date Model / Serial / Lot [employer] 604 [address] .8mm 2.3mm 3-7mm Total Center Integrate Shoe 3mm Prosthesis - [id number] Implanted:Qty: 1 on 11/01/2019 by Gaudencio Ledbetter MD at [facility] Right: Ear [employer] [id number] 10/18/2023 604 / / [id number] Insurance [facility] Address: [address] [address] R [facility] Address: [address] [address] Care Teams Administrative Resident Relationship Specialty Start Date End Date Referring, Unknown, MD PCP - General Pediatrics 10/05/19 Referral, Self Referring Physician Otolaryngology 08/05/19
[2024-11-10 16:35] VITALS: BP 131/77; PULSE 56; RESP 16; TEMP 35.7; O2SAT 97; BMI 39.3
--- NOTE | 2024-11-10 16:35 | PC.NURSE ---
Patient here for IV fluids and IVP medications related to migraine. Patient tolerated IV start well. Vital signs stable. Resting in recliner with BLE elevated. Call light provided.
[2024-11-10] MEDS: SODIUM CHLORIDE 0.9% IV 1,000 ML 999 ML IV CONT (16:58)
[2024-11-10] MEDS: diphenhydrAMINE HCl INJ 50 MG/ML VIAL IV PUSH (16:59)
[2024-11-10] MEDS: PROCHLORPERAZINE EDISYLATE 10 MG/2 ML VIAL IV PUSH (16:59)
--- NOTE | 2024-11-10 18:05 | PC.NURSE ---
Patient tolerated IVP medications and IV fluids well. IV site removed, tip intact, dressing applied. Reviewed discharge instructions with patient. Patient denies any questions. Patient left floor ambulatory accompanied by daughter who is here to transport her home in a private vehicle.
== END 2024-11-10 18:05 | disposition home or self-care (01) ==
PROVIDERS: PCP Family Medicine; Visit Provider Family Medicine
DX: G43.909 Migraine, unspecified, not intractable, without status migrainosus (principal)
CPT/HCPCS: 96360; 96361; 96374; 96375; A9270; J0780; J1200; J7030